=== PATIENT | male | born 1980 | race African-American/Black ===

== ENCOUNTER 2017-07-07 18:31 | Emergency (ER) | payer SELFPAY ==
--- NOTE | 2017-07-07 18:34 | ER Report ---
History and Physical Time Seen By MD: 18:34 HPI/ROS CHIEF COMPLAINT: [] HISTORY OF PRESENT ILLNESS: [must have 4 elements] REVIEW OF SYSTEMS: Respiratory: [No cough, no dyspnea.] Cardiovascular: [No chest pain, no palpitations.] Gastrointestinal: [No vomiting, no abdominal pain.] Musculoskeletal: [No back pain.] Reviewed Nurses Notes: Yes Old Medical Records Reviewed: Yes Physical Exam General Appearance: [The patient is alert, has no immediate need for airway protection and no current signs of toxicity.] [ ] [Eyes:] [Pupils equal and round no injection.] Respiratory: [Chest is non tender, lungs are clear to auscultation.] Cardiac: [regular rate and rhythm] [ ] Gastrointestinal: [Abdomen is soft and non tender, no masses, bowel sounds normal.] [Musculoskeletal:] [Neck:] [Neck is supple and non tender.] [Extremities have full range of motion and are non tender.] [Skin:] [No rashes or lesions.] [ ] [DIFFERENTIAL DIAGNOSIS: After history and physical exam differential diagnosis was considered for] [ ] JESSI ORTIZ DO Jul 07, 2017 18:34
--- NOTE | 2017-07-07 18:34 | ER Report ---
History and Physical Time Seen By MD: 18:34 Hx. of Stated Complaint: Sore throat, left earache HPI/ROS 37-year-old male ambulatory to ER been ill 3 days fever or chills left earache sore throat was exposed to his son was diagnosed with strep throat Allergies: Coded Allergies: No Known Drug Allergies (Unverified , 07/07/17) Home Meds No Active Prescriptions or Reported Meds Constitutional Vital Sign - Last 24 Hours 07/07/17 07/07/17 18:35 18:46 Temp 99.9 Pulse 78 74 Resp 16 B/P (MAP) 127/77 Pulse Ox 94 95 O2 Delivery Room Air Physical Exam General Appearance: [The patient is alert, has no immediate need for airway protection and no current signs of toxicity.] [ ] Heent: left tm reddened, throat with pus pocket right side uvula midline Respiratory: Chest is non tender, lungs are clear to auscultation. Cardiac: regular rate and rhythm [ ] Gastrointestinal: Abdomen is soft and non tender, no masses, bowel sounds normal. Musculoskeletal: Neck: Neck is supple and non tender. Extremities have full range of motion and are non tender. Skin: No rashes or lesions. [ ] [DIFFERENTIAL DIAGNOSIS: After history and physical exam differential diagnosis was considered for] we'll treat for presumptive strep throat has been exposed patient request penicillin shot[ ] Medical Decision Making Data Points Laboratory Hematology Test 07/07/17 18:39 Group A Streptococcus Screen Negative (NEGATIVE) Chemistry Test 07/07/17 18:39 Group A Streptococcus Screen Negative (NEGATIVE) ED Course/Re-evaluation ED Course Bicillin LA 1.2 million units IM 1 him follow-up to primary care physician as needed for your sore throat Re-evaluation no reaction to medication is doing well asked for a work excuse for tomorrow we' ll provide him this home and rest linea fluids follow-up as needed Decision to Disposition Date: Jul 07, 2017 Decision to Disposition Time: 18:57 Depart Departure Latest Vital Signs Vital Signs Date Time Temp Pulse Resp B/P (MAP) Pulse Ox O2 Delivery O2 Flow Rate FiO2 07/07/17 18:46 74 95 07/07/17 18:35 99.9 16 127/77 Room Air Impression: Primary Impression: Strep pharyngitis Additional Impression: Otitis Condition: Improved Disposition: HOME OR SELF-CARE Referrals: [facility] 1 Week New Scripts No Active Prescriptions or Reported Meds Patient Instructions: Otitis Media (ED), Strep Throat (ED) Additional Instructions: Follow-up as needed with primary care physician U received penicillin shot tonight it should be working within the next 24-48 hours take Tylenol or Motrin for fever or pain Problem Qualifiers FRAN CHAN Jul 07, 2017 18:34
[2017-07-07 18:35] VITALS: BP 127/77
[2017-07-07] MEDS ORDERED: PENICILLIN G BENZATHIN IM SUSP IM ONLY ONE (18:50)
== END 2017-07-07 18:58 | disposition home or self-care (01) ==
LOC: ER 18:50
DX: J02.9 Acute pharyngitis, unspecified (principal); H66.92 Otitis media, unspecified, left ear
CPT/HCPCS: 87081; 87880; 96372; 99283; J0561